=== PATIENT | male | born 1990 | race Caucasian/White ===

== ENCOUNTER 2023-03-26 18:36 | Emergency (ER) | payer BC ==
[~2023-03-26] VITALS: Ht 180.3 cm; Wt 145.2 kg
[2023-03-26 18:39] VITALS: BP 160/90; PULSE 88; RESP 18; TEMP 98.1; O2SAT 97
[2023-03-26] MEDS: ibuprofen tablet 400 MG TABLET PO ONE (19:06)
[2023-03-26] MEDS ORDERED: LIDOcaine 1% (10mg/ml) 2ml vial IM ONE (19:10)
[2023-03-26] MEDS: LIDOcaine 1% 30ml preserv. free vial IJ ONE (19:24)
[2023-03-26] MEDS: bacitracin 15gm ointment TP ONE (19:24)
[2023-03-26] MEDS ORDERED: CEPH-585 PO (20:18)
== END 2023-03-26 20:38 | disposition home or self-care (01) ==
LOC: ER 18:37
DX: S61.011A Laceration without foreign body of right thumb without damage to nail, initial encounter (principal); W26.8XXA Contact with other sharp object(s), not elsewhere classified, initial encounter; Y93.89 Activity, other specified; Y92.89 Other specified places as the place of occurrence of the external cause; Y99.8 Other external cause status
CPT/HCPCS: 12001; 73120; 99283; J7030; A6258; A6449

== ENCOUNTER 2023-04-05 11:33 | Emergency (ER) | payer BC ==
[~2023-04-05] VITALS: Ht 180.3 cm; Wt 153.1 kg
[2023-04-05 12:58] VITALS: BP 155/116; PULSE 90; RESP 18; TEMP 98.2; O2SAT 98
== END 2023-04-05 12:58 | disposition home or self-care (01) ==
LOC: ER 11:33
DX: S61.011D Laceration without foreign body of right thumb without damage to nail, subsequent encounter (principal); Z53.21 Procedure and treatment not carried out due to patient leaving prior to being seen by health care provider; X58.XXXD Exposure to other specified factors, subsequent encounter
CPT/HCPCS: 99281

== ENCOUNTER 2024-06-26 14:47 | Emergency (ER) | payer BC, OTHER ==
[~2024-06-26] VITALS: Ht 177.8 cm; Wt 146.6 kg
[2024-06-26 15:02] VITALS: BP 154/113; PULSE 95; RESP 18; O2SAT 96
[2024-06-26] MEDS ORDERED: HYDR-3965 PO (16:26)
[2024-06-26 17:01] VITALS: TEMP 98.6
== END 2024-06-26 17:04 | disposition home or self-care (01) ==
LOC: ER 14:48
DX: M79.662 Pain in left lower leg (principal)
CPT/HCPCS: 29515; 99283